=== PATIENT | male | born 1945 | race African-American/Black ===

== ENCOUNTER 2019-10-11 11:46 | Inpatient (IN) ==
[2019-10-11] MEDS ORDERED: ONDANSETRON 4 MG/2 ML VIAL IV ONE (12:33)
[2019-10-11] MEDS ORDERED: MORPHINE 4 MG/1 ML VIAL IV ONE (12:33)
[2019-10-11 13:18] LABS: Basophils % 0.1 % (0.0-0.8); Eosinophils % 0.2 % (0.00-10.9); Hematocrit 35.8 VOL% (42.0-52.0); Hemoglobin 12.1 GM/DL (14.0-18.0); Immature Granulocytes % 0.4 %; Immature Granulocytes Absolute 0.03 #; Lymphocytes % 11.4 % (21.2-54.2); Mean Corpuscular HGB Conc 33.8 GM/DL (32-36); Mean Corpuscular Volume 90.4 FL (87-102); Mean Platelet Volume 9.1 FL (9.6-12.0); Monocytes % 6.6 % (1.7-12.7); Neutrophils % 81.3 % (38.7-73.9); Platelet Count 209 T/CUMM (130-400); Red Blood Count 3.96 MC/CUMM (3.8-5.5); Red Cell Distribution Width 12.2 % (9.3-17.3); White Blood Count 8.4 T/CUMM (4-12)
[2019-10-11 13:28] LABS: PT Patient Result 10.8 SECS (9.6-12.2)
[2019-10-11 13:34] LABS: Albumin 2.3 G/DL (3.4-5.0); Bilirubin,Total 0.4 MG/DL (0.2-1.0); Calcium 8.3 MG/DL (8.5-10.1); Osmolality,Calculated 277.2 MOS/KG (273-304); Total Protein 6.8 G/DL (6.4-8.3)
[2019-10-11] MEDS ORDERED: GLUCAGON 1 MG VIAL IM PRN (15:43)
[2019-10-11] MEDS ORDERED: ACETAMINOPHEN 325 MG TABLET PO PRN (15:43)
[2019-10-11] MEDS ORDERED: DEXTROSE 10% 250 ML BAG IV PRN (15:43)
[2019-10-11] MEDS ORDERED: ONDANSETRON 4 MG/2 ML VIAL IV PRN (15:43)
[2019-10-11] MEDS: GABAPENTIN 600 MG TABLET PO SCH ×2 (16:03→21:14)
[2019-10-11] MEDS: PIPERACILLIN/TAZOBACTAM 3,375 MG in SODIUM CHLORIDE 0.9% 100 ML IV SCH (16:06)
[2019-10-11] MEDS ORDERED: ceFAZolin 1,000 MG in SYRINGE 1 EACH IV ONE (16:17)
[2019-10-11] MEDS: INSULIN LISPRO 100 UNIT/ML SUBCUT SCH (17:46)
[2019-10-11] MEDS: VANCOMYCIN INJ 1,250 MG in SODIUM CHLORIDE 0.9% 250 ML IV SCH (20:09)
[2019-10-11] MEDS: DONEPEZIL 10 MG TABLET PO SCH (21:14)
[2019-10-11] MEDS: DEXTROSE 5% LACTATED RINGERS 1,000 ML IV SCH (23:28)
[2019-10-12] MEDS: INSULIN LISPRO 100 UNIT/ML SUBCUT SCH ×4 (00:07→17:53)
[2019-10-12] MEDS: HYDROmorphone 2 MG/1 ML VIAL IV PRN ×2 (00:38→07:02)
[2019-10-12] MEDS: PIPERACILLIN/TAZOBACTAM 3,375 MG in SODIUM CHLORIDE 0.9% 100 ML IV SCH ×3 (00:43→17:50)
[2019-10-12] MEDS ORDERED: ceFAZolin 1,000 MG in SYRINGE 1 EACH IV ONE (06:00)
[2019-10-12 06:06] LABS: Basophils % 0.2 % (0.0-0.8); Eosinophils # 0.1 10*3/uL (0.0-0.87); Hematocrit 34.7 VOL% (42.0-52.0); Hemoglobin 11.4 GM/DL (14.0-18.0); Immature Granulocytes % 0.4 %; Immature Granulocytes Absolute 0.03 #; Lymphocytes # 1.8 10*3/uL (1.4-4.0); Lymphocytes % 22.6 % (21.2-54.2); Mean Corpuscular HGB Conc 32.9 GM/DL (32-36); Mean Corpuscular Volume 91.1 FL (87-102); Mean Platelet Volume 9.1 FL (9.6-12.0); Neutrophils % 67.8 % (38.7-73.9); Platelet Count 225 T/CUMM (130-400); Red Blood Count 3.81 MC/CUMM (3.8-5.5); Red Cell Distribution Width 12.3 % (9.3-17.3); White Blood Count 8.1 T/CUMM (4-12)
[2019-10-12 06:18] LABS: Calcium 8.4 MG/DL (8.5-10.1); Osmolality,Calculated 274.8 MOS/KG (273-304)
[2019-10-12] MEDS ORDERED: LIDOCAINE 1% 20 ML VIAL ONE (07:16)
[2019-10-12] MEDS ORDERED: BUPIVACAINE MPF 0.25% 30 ML VIAL ONE (07:16)
[2019-10-12] MEDS: DEXTROSE 5% LACTATED RINGERS 1,000 ML IV SCH ×3 (07:35→23:55)
[2019-10-12] MEDS ORDERED: LIDOCAINE 2% 5 ML VIAL ONE (08:59)
[2019-10-12] MEDS ORDERED: SEVOFLURANE 1 UNIT/15 MINUTE INH ONE (08:59)
[2019-10-12] MEDS ORDERED: MIDAZOLAM 2 MG/2 ML VIAL ONE (09:00)
[2019-10-12] MEDS ORDERED: fentaNYL 100 MCG/2 ML VIAL ONE (09:00)
[2019-10-12] MEDS ORDERED: ETOMIDATE 40 MG/20 ML VIAL IV ONE (09:00)
[2019-10-12] MEDS ORDERED: LACTATED RINGERS 1,000 ML IV ONE (09:00)
[2019-10-12] MEDS ORDERED: diphenhydrAMINE CAP 50 MG CAPSULE PO PRN (09:33)
[2019-10-12] MEDS: ENOXAPARIN 40 MG/0.4 ML SYRINGE SUBCUT SCH (09:51)
[2019-10-12] MEDS: TAMSULOSIN 0.4 MG CAPSULE PO SCH (09:51)
[2019-10-12] MEDS: VANCOMYCIN INJ 1,250 MG in SODIUM CHLORIDE 0.9% 250 ML IV SCH ×2 (09:51→22:41)
[2019-10-12] MEDS: LOSARTAN 25 MG TABLET PO SCH (09:51)
[2019-10-12] MEDS: PANTOPRAZOLE 40 MG TABLET PO SCH (09:52)
[2019-10-12] MEDS: GABAPENTIN 600 MG TABLET PO SCH ×3 (09:52→21:26)
[2019-10-12] MEDS: amLODIPine 5 MG TABLET PO SCH (09:52)
[2019-10-12] MEDS: DONEPEZIL 10 MG TABLET PO SCH (21:26)
[2019-10-13] MEDS: INSULIN LISPRO 100 UNIT/ML SUBCUT SCH ×4 (00:21→18:41)
[2019-10-13] MEDS: PIPERACILLIN/TAZOBACTAM 3,375 MG in SODIUM CHLORIDE 0.9% 100 ML IV SCH ×3 (01:24→14:58)
[2019-10-13] MEDS: ENOXAPARIN 40 MG/0.4 ML SYRINGE SUBCUT SCH (09:24)
[2019-10-13] MEDS: GABAPENTIN 600 MG TABLET PO SCH ×3 (09:24→21:15)
[2019-10-13] MEDS: LOSARTAN 25 MG TABLET PO SCH (09:24)
[2019-10-13] MEDS: TAMSULOSIN 0.4 MG CAPSULE PO SCH (09:24)
[2019-10-13] MEDS: PANTOPRAZOLE 40 MG TABLET PO SCH (09:25)
[2019-10-13] MEDS: amLODIPine 5 MG TABLET PO SCH (09:25)
[2019-10-13] MEDS: DEXTROSE 5% LACTATED RINGERS 1,000 ML IV SCH ×3 (09:27→21:28)
[2019-10-13] MEDS: VANCOMYCIN INJ 1,250 MG in SODIUM CHLORIDE 0.9% 250 ML IV SCH ×2 (12:16→21:15)
[2019-10-13] MEDS: DONEPEZIL 10 MG TABLET PO SCH (21:15)
[2019-10-14] MEDS: PIPERACILLIN/TAZOBACTAM 3,375 MG in SODIUM CHLORIDE 0.9% 100 ML IV SCH ×3 (01:22→14:59)
[2019-10-14] MEDS: INSULIN LISPRO 100 UNIT/ML SUBCUT SCH ×4 (01:40→17:53)
[2019-10-14] MEDS: TAMSULOSIN 0.4 MG CAPSULE PO SCH (08:50)
[2019-10-14] MEDS: amLODIPine 5 MG TABLET PO SCH (08:50)
[2019-10-14] MEDS: LOSARTAN 25 MG TABLET PO SCH (08:51)
[2019-10-14] MEDS: PANTOPRAZOLE 40 MG TABLET PO SCH (08:51)
[2019-10-14] MEDS: ENOXAPARIN 40 MG/0.4 ML SYRINGE SUBCUT SCH (08:51)
[2019-10-14] MEDS: GABAPENTIN 600 MG TABLET PO SCH ×3 (08:51→21:41)
[2019-10-14] MEDS: DEXTROSE 5% LACTATED RINGERS 1,000 ML IV SCH ×4 (08:55→19:46)
[2019-10-14] MEDS: VANCOMYCIN INJ 1,250 MG in SODIUM CHLORIDE 0.9% 250 ML IV SCH (12:30)
[2019-10-14] MEDS: DONEPEZIL 10 MG TABLET PO SCH (21:41)
[2019-10-15] MEDS: PIPERACILLIN/TAZOBACTAM 3,375 MG in SODIUM CHLORIDE 0.9% 100 ML IV SCH ×2 (00:58→06:57)
[2019-10-15] MEDS: INSULIN LISPRO 100 UNIT/ML SUBCUT SCH ×2 (01:21→06:50)
[2019-10-15] MEDS: VANCOMYCIN INJ 1,250 MG in SODIUM CHLORIDE 0.9% 250 ML IV SCH (02:08)
[2019-10-15] MEDS: DEXTROSE 5% LACTATED RINGERS 1,000 ML IV SCH ×2 (04:27→10:19)
[2019-10-15] MEDS: amLODIPine 5 MG TABLET PO SCH (10:18)
[2019-10-15] MEDS: GABAPENTIN 600 MG TABLET PO SCH (10:18)
[2019-10-15] MEDS: LOSARTAN 25 MG TABLET PO SCH (10:18)
[2019-10-15] MEDS: TAMSULOSIN 0.4 MG CAPSULE PO SCH (10:18)
[2019-10-15] MEDS: PANTOPRAZOLE 40 MG TABLET PO SCH (10:18)
[2019-10-15] MEDS: ENOXAPARIN 40 MG/0.4 ML SYRINGE SUBCUT SCH (10:19)
[2019-10-15 12:05] VITALS: BP 175/61
== END 2019-10-15 11:41 | disposition home health service (06) | DRG 256 ==
LOC: N.ED 11:46 → N.EDINP 14:03 → N.3E 15:30
PROVIDERS: ADMIT Student in an Organized Health Care Education/Training Program; ATTEND Student in an Organized Health Care Education/Training Program

== ENCOUNTER 2019-10-17 09:10 | Observation (INO) ==
[2019-10-17 10:16] LABS: Basophils % 0.1 % (0.0-0.8); Eosinophils % 0.1 % (0.00-10.9); Hemoglobin 11.7 GM/DL (14.0-18.0); Immature Granulocytes % 0.8 %; Immature Granulocytes Absolute 0.09 #; Lymphocytes # 0.4 10*3/uL (1.4-4.0); Lymphocytes % 3.7 % (21.2-54.2); Mean Corpuscular HGB Conc 33.4 GM/DL (32-36); Mean Corpuscular Volume 89.7 FL (87-102); Mean Platelet Volume 9.1 FL (9.6-12.0); Monocytes % 5.1 % (1.7-12.7); Neutrophils % 90.2 % (38.7-73.9); Platelet Count 320 T/CUMM (130-400); Red Cell Distribution Width 12.7 % (9.3-17.3); White Blood Count 10.9 T/CUMM (4-12)
[2019-10-17 10:30] LABS: Alanine Aminotransferase 68 U/L (16-61); Albumin 2.1 G/DL (3.4-5.0); Alkaline Phosphatase 230 U/L (45-117); Aspartate Amino Transferase 46 U/L (0-37); Blood Urea Nitrogen 9 MG/DL (7-18); Calcium 8.7 MG/DL (8.5-10.1); Estimated Glom Filtration Rate 127 ML/MIN; Glucose 182 MG/DL (74-106); Osmolality,Calculated 278.7 MOS/KG (273-304)
[2019-10-17 10:35] LABS: Hypochromasia 1+; Lymphocytes 2 % (20-55); Ovalocytes Slight; Platelet Estimate Adequate; Segmented Neutrophils 94 % (50-85); Total Cells Counted 100
[2019-10-17 10:58] LABS: Apearance,Urine CLEAR (Clear); Bacteria,Urine Occasional /HPF (Few); Bilirubin,Urine Negative (Negative); Blood, Urine Negative (Negative); Glucose,Urine (UA) Negative (Negative); Ketones,Urine Negative (Negative); Mucus,Urine Occasional /LPF (Occasional); Nitrite,Urine Negative (Negative); Protein,Urine Negative; RBC,Urine 10 /HPF (0-4); Urine Color Yellow (Yellow); Urine Specific Gravity 1.015 (1.001-1.035); Urine Urobilinogen < 2.0 EU/DL (0.2-1.0); WBC,Urine 3 /HPF (0-6)
[2019-10-17] MEDS ORDERED: SODIUM CHLORIDE 0.9% 1,000 ML IV STA ×2 (12:27→13:11)
[2019-10-17] MEDS ORDERED: PROMETHAZINE 25 MG/1 ML VIAL IM PRN (13:00)
[2019-10-17] MEDS ORDERED: ONDANSETRON 4 MG/2 ML VIAL IV PRN (13:00)
[2019-10-17] MEDS ORDERED: BISACODYL 10 MG SUPP RECTAL STA (13:02)
[2019-10-17] MEDS ORDERED: METOCLOPRAMIDE 10 MG/2 ML VIAL IV STA (13:02)
[2019-10-17] MEDS ORDERED: METOPROLOL TARTRATE 25 MG TABLET PO STA (13:04)
[2019-10-17] MEDS ORDERED: ACETAMINOPHEN 500 MG TABLET PO PRN (13:05)
[2019-10-17] MEDS ORDERED: RANITIDINE 150 MG TABLET PO PRN (13:05)
[2019-10-17] MEDS ORDERED: ENOXAPARIN 80 MG/0.8 ML SYRINGE SUBCUT STA (13:07)
[2019-10-17] MEDS ORDERED: SODIUM CHLORIDE 0.9% 1,500 ML IV STA (13:09)
[2019-10-17] MEDS ORDERED: DEXTROSE 10% 250 ML BAG IV PRN (13:40)
[2019-10-17] MEDS ORDERED: GLUCAGON 1 MG VIAL IM PRN (13:40)
[2019-10-17] MEDS ORDERED: METHYLNALTREXONE 12 MG/0.6 ML VIAL SUBCUT ONE (14:00)
[2019-10-17] MEDS: SODIUM CHLORIDE 0.9% 1,000 ML IV SCH ×2 (14:15→20:33)
[2019-10-17] MEDS: METOCLOPRAMIDE 10 MG/2 ML VIAL IV SCH ×2 (14:41→20:25)
[2019-10-17] MEDS: GABAPENTIN 600 MG TABLET PO SCH ×2 (15:38→20:26)
[2019-10-17] MEDS: INSULIN REGULAR 100 UNIT/ML SUBCUT SCH ×2 (15:56→23:50)
[2019-10-17] MEDS ORDERED: BISACODYL 5 MG TABLET PO ONE (16:48)
[2019-10-17] MEDS: DOCUSATE SODIUM 100 MG CAPSULE PO SCH (20:26)
[2019-10-17] MEDS: METOPROLOL TARTRATE 25 MG TABLET PO SCH (20:26)
[2019-10-17] MEDS: SULFAMETHOX/TRIMETHOPRIM 800-160 MG TABLET PO SCH (20:27)
[2019-10-17] MEDS: glyBURIDE 5 MG TABLET PO SCH (20:27)
[2019-10-17] MEDS ORDERED: INSULIN GLARGINE 100 UNIT/ML SUBCUT SCH (21:00)
[2019-10-17] MEDS ORDERED: DONEPEZIL 10 MG TABLET PO SCH (21:00)
[2019-10-17] MEDS ORDERED: ATORVASTATIN 80 MG TABLET PO SCH (21:00)
[2019-10-18] MEDS: SODIUM CHLORIDE 0.9% 1,000 ML IV SCH (03:29)
[2019-10-18] MEDS: METOCLOPRAMIDE 10 MG/2 ML VIAL IV SCH ×2 (03:29→09:30)
[2019-10-18] MEDS: INSULIN REGULAR 100 UNIT/ML SUBCUT SCH ×2 (08:49→11:51)
[2019-10-18] MEDS ORDERED: LOSARTAN 25 MG TABLET PO SCH (09:00)
[2019-10-18] MEDS ORDERED: SENNA 8.6 MG TABLET PO SCH (09:00)
[2019-10-18] MEDS ORDERED: amLODIPine 5 MG TABLET PO SCH (09:00)
[2019-10-18] MEDS ORDERED: TAMSULOSIN 0.4 MG CAPSULE PO SCH (09:00)
[2019-10-18] MEDS ORDERED: MAGNESIUM OXIDE 400 MG TABLET PO SCH (09:00)
[2019-10-18] MEDS ORDERED: CLOPIDOGREL 75 MG TABLET PO SCH (09:00)
[2019-10-18] MEDS ORDERED: CYANOCOBALAMIN 500 MCG TABLET PO SCH (09:00)
[2019-10-18] MEDS ORDERED: PANTOPRAZOLE 40 MG TABLET PO SCH ×2 (09:00)
[2019-10-18] MEDS ORDERED: APIXABAN 5 MG TABLET PO SCH (09:00)
[2019-10-18] MEDS: SULFAMETHOX/TRIMETHOPRIM 800-160 MG TABLET PO SCH (09:31)
[2019-10-18] MEDS: GABAPENTIN 600 MG TABLET PO SCH (09:31)
[2019-10-18] MEDS: DOCUSATE SODIUM 100 MG CAPSULE PO SCH (09:31)
[2019-10-18] MEDS: glyBURIDE 5 MG TABLET PO SCH (09:31)
[2019-10-18] MEDS: METOPROLOL TARTRATE 25 MG TABLET PO SCH (09:31)
[2019-10-18 12:38] VITALS: BP 130/55
== END 2019-10-18 12:41 | disposition home health service (06) ==
LOC: EDBD → EDUNIT# → N.ED 09:10 → N.EDINP 09:10 → N.5E 13:20
PROVIDERS: ADMIT Internal Medicine; ATTEND Internal Medicine